=== PATIENT | female | born 1985 | race Caucasian/White ===

== ENCOUNTER 2023-11-25 21:41 | Inpatient (IN) | payer MEDICAID ==
[~2023-11-25] VITALS: Ht 160 cm; Wt 89.8 kg
[2023-11-25 22:28] VITALS: BP 131/100; PULSE 102; RESP 20; TEMP 97.8; O2SAT 99
[2023-11-25] MEDS ORDERED: ONDANSETRON 4 MG/2 ML VIAL IVP ONE (23:50)
[2023-11-25] MEDS ORDERED: MORPHINE SULFATE 4 MG/ML SYR IVP ONE (23:50)
[2023-11-25] MEDS ORDERED: LIDOCAINE OINTMENT 5% 35 GM TUBE TP ONE (23:50)
[2023-11-25] MEDS ORDERED: NACL 0.9% 1,000 ML IV SCH (23:50)
[2023-11-26 00:16] LABS: BASOPHILS % (AUTO) 0.5 % (0.0-2.0); EOSINOPHILS % (AUTO) 0.4 % (0.0-4.0); HEMATOCRIT 39.2 % (36-48); HEMOGLOBIN 13.3 g/dL (12.0-16.0); LYMPHOCYTES # (AUTO) 1.5 K/uL (2.5-16.5); LYMPHOCYTES % (AUTO) 19.5 % (20.5-51.1); MEAN CORPUSCULAR HEMOGLOBIN 28 pg (27-31); MEAN CORPUSCULAR HGB CONC 34 g/dL (33-37); MEAN CORPUSCULAR VOLUME 82.5 fL (80-94); MONOCYTES # (AUTO) 0.4 K/uL (0.8-1.0); MONOCYTES % (AUTO) 5.3 % (1.7-9.3); NEUTROPHILS # (AUTO) 5.9 K/uL (1.8-7.7); NEUTROPHILS % (AUTO) 74.3 % (42.2-75.2); PLATELET COUNT (AUTO) 394 K/uL (140-450); RED BLOOD CELL COUNT(AUTO) 4.75 MIL/uL (4.20-5.40); RED CELL DISTRIBUTION WIDTH 15.1 % (11.6-13.7); WHITE BLOOD COUNT (AUTO) 7.9 K/uL (4.8-10.8)
[2023-11-26 00:33] LABS: ANION GAP 10.6 (8-16); CALCIUM 9.3 mg/dL (8.5-10.1); CARBON DIOXIDE 29.7 mmol/L (21-32); CREATININE 0.8 mg/dL (0.6-1.3); POTASSIUM 3.3 mmol/L (3.5-5.1)
[2023-11-26 00:46] LABS: LACTIC ACID 0.6 mmol/L (0.4-2.0)
[2023-11-26 00:46] LABS: APPEARANCE,URINE CLEAR (CLEAR); BILIRUBIN,URINE NEGATIVE (NEGATIVE); BLOOD, URINE 1+ (NEGATIVE); COLOR,URINE YELLOW (YELLOW); LEUKOCYTE ESTERASE ,URINE NEGATIVE (NEGATIVE); NITRITE, URINE NEGATIVE (NEGATIVE); PROTEIN,URINE NEGATIVE (NEGATIVE); UGLUCOSE NEGATIVE (NEGATIVE)
[2023-11-26 01:06] LABS: ALANINE AMINOTRANSFERASE 24 U/L (12-78); ALBUMIN 3.9 g/dL (3.4-5.0); ALKALINE PHOSPHATASE 135 U/L (50-136); ASPARTATE AMINOTRANSFERASE 21 U/L (15-37); BILIRUBIN,DIRECT 0.1 mg/dL (0.0-0.3); TOTAL BILIRUBIN 0.3 mg/dL (0.0-1.0); TOTAL PROTEIN, SERUM 9.5 g/dL (6.4-8.2)
[2023-11-26] MEDS ORDERED: LIDOCAINE OINTMENT 5% 35 GM TUBE TP ONE (01:07)
[2023-11-26] MEDS ORDERED: MIDAZOLAM 2 MG/2 ML VIAL IVP ONE (01:15)
[2023-11-26 01:22] LABS: BACTERIA,URINE 10-30 (MOD) /HPF (None Seen); MUCUS,URINE 1+ /LPF (None Seen); RBC,URINE 0-5 /HPF (0-5); SQUAMOUS EPITHELIAL CELL,UR 0-3 (FEW) /LPF (0-3 (FEW))
[2023-11-26 02:30] VITALS: O2SAT 100
[2023-11-26] MEDS ORDERED: ACETAMINOPHEN 325 MG TAB PO PRN (03:40)
[2023-11-26] MEDS ORDERED: ONDANSETRON 4 MG/2 ML VIAL IVP PRN ×2 (03:40→06:40)
[2023-11-26] MEDS ORDERED: NACL 0.9% 1,000 ML IV ONE (03:40)
[2023-11-26] MEDS ORDERED: cefTRIAXone 1,000 MG VIAL ONE (04:02)
[2023-11-26 05:04] LABS: BASOPHILS % (AUTO) 0.5 % (0.0-2.0); EOSINOPHILS % (AUTO) 0.7 % (0.0-4.0); HEMATOCRIT 33.8 % (36-48); HEMOGLOBIN 11.4 g/dL (12.0-16.0); LYMPHOCYTES # (AUTO) 1.7 K/uL (2.5-16.5); LYMPHOCYTES % (AUTO) 26.3 % (20.5-51.1); MEAN CORPUSCULAR HEMOGLOBIN 28 pg (27-31); MEAN CORPUSCULAR HGB CONC 34 g/dL (33-37); MONOCYTES # (AUTO) 0.5 K/uL (0.8-1.0); MONOCYTES % (AUTO) 8.2 % (1.7-9.3); NEUTROPHILS % (AUTO) 64.3 % (42.2-75.2); PLATELET COUNT (AUTO) 322 K/uL (140-450); RED BLOOD CELL COUNT(AUTO) 4.07 MIL/uL (4.20-5.40); RED CELL DISTRIBUTION WIDTH 15.1 % (11.6-13.7); WHITE BLOOD COUNT (AUTO) 6.3 K/uL (4.8-10.8)
[2023-11-26 05:10] VITALS: O2SAT 100
[2023-11-26 05:21] LABS: ANION GAP 11.1 (8-16); CARBON DIOXIDE 26.5 mmol/L (21-32); CREATININE 0.7 mg/dL (0.6-1.3); POTASSIUM 3.6 mmol/L (3.5-5.1)
[2023-11-26 05:25] LABS: INR 1.04 (0.8-1.2); PARTIAL THROMBOPLASTIN TIME 33.2 secs (22-35.6); PROTHROMBIN TIME 10.9 secs (10.8-13.4)
[2023-11-26] MEDS ORDERED: SUCCINYLCHOLINE CHLORIDE 200 MG/10 ML VIAL IVP ONE (05:30)
[2023-11-26] MEDS ORDERED: ePHEDrine 50 MG/ML VIAL ONE (05:30)
[2023-11-26] MEDS ORDERED: NEOSTIGMINE 1:1000 10 MG/10 ML VIAL ONE (05:30)
[2023-11-26] MEDS ORDERED: SEVOFLURANE 250 ML BTL INH ONE (05:30)
[2023-11-26] MEDS ORDERED: GLYCOPYRROLATE 0.2 MG/ML VIAL ONE (05:30)
[2023-11-26 05:32] LABS: ALBUMIN 2.7 g/dL (3.4-5.0); MAGNESIUM 2.1 mg/dL (1.8-2.4); TOTAL BILIRUBIN 0.2 mg/dL (0.0-1.0); TOTAL PROTEIN, SERUM 6.8 g/dL (6.4-8.2)
[2023-11-26] MEDS ORDERED: PROPOFOL 200 MG/20 ML VIAL IV ONE (05:41)
[2023-11-26] MEDS ORDERED: ROCURONIUM 50 MG/5 ML VIAL IV ONE (05:41)
[2023-11-26] MEDS ORDERED: MIDAZOLAM 2 MG/2 ML VIAL ONE (05:42)
[2023-11-26] MEDS ORDERED: ONDANSETRON 4 MG/2 ML VIAL ONE (05:44)
[2023-11-26] MEDS ORDERED: DEXAMETHASONE 4 MG/ML VIAL ONE ×2 (05:44)
[2023-11-26] MEDS ORDERED: HYDROmorphone PFS 2 MG/ML SYR ONE ×2 (06:17→07:54)
[2023-11-26] MEDS ORDERED: metroNIDAZOLE 500 MG/NS PREMIX 100 ML IV ONE (06:19)
[2023-11-26] MEDS: HYDROmorphone 1 MG/ML AMP IVP PRN ×2 (07:55→13:17)
[2023-11-26 08:30] VITALS: RESP 14; O2SAT 100
[2023-11-26] MEDS: MORPHINE SULFATE 4 MG/ML SYR IVP PRN ×2 (11:11→20:35)
[2023-11-26 16:00] VITALS: BP 108/59; PULSE 84; RESP 20; TEMP 97.7; O2SAT 100
[2023-11-26 20:00] VITALS: BP 111/80; PULSE 78; RESP 18; TEMP 97.6; O2SAT 100
[2023-11-27] MEDS: MORPHINE SULFATE 4 MG/ML SYR IVP PRN ×5 (03:42→23:49)
[2023-11-27 04:00] VITALS: BP 132/81; PULSE 93; RESP 18; TEMP 97.9; O2SAT 100
[2023-11-27 08:00] VITALS: BP 123/74; PULSE 82; RESP 18; TEMP 97.8; O2SAT 94
[2023-11-27 09:04] VITALS: PULSE 82; RESP 18; O2SAT 94
[2023-11-27 16:00] VITALS: BP 129/83; PULSE 85; RESP 16; TEMP 98.4; O2SAT 100
[2023-11-27 20:00] VITALS: BP 138/84; PULSE 81; RESP 18; TEMP 98.5; O2SAT 99
[2023-11-28 04:00] VITALS: BP 123/81; PULSE 82; RESP 18; TEMP 98; O2SAT 99
[2023-11-28] MEDS: MORPHINE SULFATE 4 MG/ML SYR IVP PRN ×3 (04:10→14:44)
[2023-11-28 08:00] VITALS: BP_SYST 141; BP_SYST 147; BP_DIAS 73; BP_DIAS 88; PULSE 67; PULSE 88; RESP 18; TEMP 97.8; TEMP 98.8; O2SAT 100; O2SAT 96
[2023-11-28] MEDS ORDERED: POLY17PD46 PO (11:17)
[2023-11-28] MEDS ORDERED: HYDR-5080 PO (11:17)
[2023-11-28] MEDS ORDERED: CIPR500T4 PO (11:24)
== END 2023-11-28 16:00 | disposition home or self-care (01) | DRG 223 ==
LOC: MED 21:41 → MTU 11-26 04:13 → MMU 11-26 04:31 → MTU 11-26 05:00
PROVIDERS: ADMIT Family Medicine; ATTEND Family Medicine
PROC: 0DCN0ZZ Extirpation of Matter from Sigmoid Colon, Open Approach (ICD-10-PCS; principal; 2023-11-26 05:30)
DX: T18.4XXA Foreign body in colon, initial encounter (principal); N39.0 Urinary tract infection, site not specified; W44.8XXA Other foreign body entering into or through a natural orifice, initial encounter; Y93.89 Activity, other specified; Y92.89 Other specified places as the place of occurrence of the external cause; Y99.8 Other external cause status
CPT/HCPCS: 36415; 71045; 72170; 74018; 80048; 80053; 80076; 81001; 83605; 83735; 84484; 85025; 85610; 85730; 86886; 86900; 86901; 87040; 87081; 87086; 88300; 96361; 96365; 96375; 97116; 97163-GP; 99291; J0330; J0696; J1100; J1170; J2250; J2270; J2405; J2704; J2710; J3490; J7120; Q0092